=== PATIENT | female | born 1980 | race Hispanic/Latino ===

== ENCOUNTER 2019-02-20 13:49 | Emergency (ER) | payer MEDICAID ==
[~2019-02-20] VITALS: Ht 157.5 cm; Wt 90.9 kg
[2019-02-20 14:55] LABS: URINE BILIRUBIN - DIPSTICK NEGATIVE (NEGATIVE); URINE BLOOD DIPSTICK SMALL (NEGATIVE); URINE COLOR YELLOW; URINE GLUCOSE - DIPSTICK >=1000 mg/dL (NEGATIVE); URINE KETONE TRACE mg/dL (NEGATIVE); URINE PH 5.5 (4.5-8.0); URINE PROTEIN - DIPSTICK TRACE mg/dL (NEG-TRACE); URINE UROBILINOGEN - DIPSTICK 0.2 E.U./dL (0.2)
[2019-02-20 14:57] LABS: IMMATURE GRANULOCYTES 0.5 % (0.0-5.0); MEAN CORPUSCULAR HGB 27.3 pG CALC (26.0-32.0); MEAN CORPUSCULAR HGB CONC 32.9 g/L CALC (32.0-36.0); NEUT# 8.18 thou/uL (2.00-7.15); RED BLOOD COUNT 5.13 mill/uL (4.20-5.60); RED CELL DISTRI WIDTH 13.1 % (11.5-15.5)
[2019-02-20 14:58] LABS: HEMATOCRIT 42.6 % (37.0-47.0)
[2019-02-20 15:02] LABS: URINE LEUK ESTERASE SMALL (NEGATIVE); URINE NITRITE - DIPSTICK POSITIVE (Negative)
[2019-02-20] MEDS ORDERED: METFORMIN HCL500 M1 PO (15:07)
[2019-02-20] MEDS ORDERED: LANTUS SOL100 UNIT/M SC (15:07)
[2019-02-20] MEDS ORDERED: ATORVASTATIN CA10 MG PO (15:08)
[2019-02-20 15:10] LABS: ALKALINE PHOSPHATASE 126 u/l (38-126); ANION GAP 17 (6-22 (CALC)); BILIRUBIN, TOTAL 0.5 mg/dL (0.0-1.4); BUN 11 mg/dL (7-17); BUN/CREATININE RATIO 22 (12-20 (CALC)); CHLORIDE 96 mmol/l (95-108); CREATININE 0.5 mg/dL (0.5-1.0); GFR > 60 ML/MIN (>=60 (CALC)); GFR FOR AFR.AMER. > 60 ML/MIN (>=60 (CALC)); POTASSIUM 4.1 mmol/l (3.5-5.1); SGOT/AST 17 u/l (14-36); SODIUM 136 mmol/l (137-146); TOTAL PROTEIN 7.6 g/dL (6.3-8.2)
[2019-02-20 15:11] LABS: CARBON DIOXIDE 27 mmol/l (22-30)
[2019-02-20 15:17] LABS: URINE RBC 25-50 RBC/hpf (0-5); URINE SQUAMOUS EPITHELIAL CELL FEW EPI/hpf (0-FEW); URINE WBC 20-50 WBC/hpf (0-5)
[2019-02-20 15:18] LABS: URINE BACTERIA MODERATE hpf
[2019-02-20] MEDS ORDERED: KEFLEX500 M1 PO (16:36)
[2019-02-20 16:50] VITALS: BP 107/76
== END 2019-02-20 17:25 | disposition home or self-care (01) ==
LOC: ED 13:49
DX: N39.0 Urinary tract infection, site not specified (principal); E11.9 Type 2 diabetes mellitus without complications; G40.909 Epilepsy, unspecified, not intractable, without status epilepticus; B96.20 Unspecified Escherichia coli [E. coli] as the cause of diseases classified elsewhere; Z79.4 Long term (current) use of insulin

== ENCOUNTER 2022-01-12 11:28 | Emergency (ER) | payer MEDICAID ==
[~2022-01-12] VITALS: Ht 157.5 cm; Wt 88.2 kg
[2022-01-12] VITALS (10 sets, daily range): BP systolic 93–122; BP diastolic 60–79
[~2022-01-12 11:28] MED LIST: ATORVASTATIN CA10 MG PO; KEFLEX500 M1 PO; LANTUS SOL100 UNIT/M SC; METFORMIN HCL500 M1 PO
[2022-01-12 13:38] LABS: URINE BILIRUBIN - DIPSTICK NEGATIVE (NEGATIVE); URINE BLOOD DIPSTICK NEGATIVE (NEGATIVE); URINE COLOR YELLOW; URINE GLUCOSE - DIPSTICK >=1000 mg/dL (NEGATIVE); URINE KETONE 15 mg/dL (NEGATIVE); URINE LEUK ESTERASE NEGATIVE (NEGATIVE); URINE PH 5.5 (4.5-8.0); URINE PROTEIN - DIPSTICK TRACE mg/dL (NEG-TRACE); URINE SPECIFIC GRAVITY 1.025; URINE UROBILINOGEN - DIPSTICK 0.2 E.U./dL (0.2)
[2022-01-12 13:41] LABS: URINE NITRITE - DIPSTICK NEGATIVE (Negative)
[2022-01-12 13:58] LABS: HEMATOCRIT 41.7 % (37.0-47.0); HEMOGLOBIN 13.8 g/dl (12.0-16.0); IMMATURE GRANULOCYTES 0.1 % (0.0-5.0); MEAN CELL VOLUME 83.6 fL CALC (80.0-100.0); MEAN CORPUSCULAR HGB 27.7 pG CALC (26.0-32.0); MEAN CORPUSCULAR HGB CONC 33.1 g/dL CAL (32.0-36.0); NEUT# 4.56 thou/uL (2.00-7.15); RED BLOOD COUNT 4.99 mill/uL (4.20-5.60); RED CELL DISTRI WIDTH 13.2 % (11.5-15.5)
[2022-01-12 14:02] LABS: ALBUMIN 3.9 g/dL (3.2-5.0); ALKALINE PHOSPHATASE 132 u/l (38-126); ANION GAP 11 (6-22 (CALC)); BILIRUBIN, TOTAL 0.4 mg/dL (0.0-1.4); BUN 15 mg/dL (7-17); BUN/CREATININE RATIO 37 (12-20 (CALC)); CARBON DIOXIDE 28 mmol/l (22-30); CHLORIDE 101 mmol/l (95-108); CREATININE 0.4 mg/dL (0.5-1.0); GFR FOR AFR.AMER. > 60 ML/MIN (>=60 (CALC)); GFR OTHER RACES > 60 ML/MIN (>=60 (CALC)); LIPASE 134 u/l (23-300); POTASSIUM 3.9 mmol/l (3.5-5.1); SGOT/AST 23 u/l (14-36); SODIUM 136 mmol/l (137-146); TOTAL PROTEIN 7.5 g/dL (6.3-8.2)
[2022-01-12] MEDS ORDERED: NAPROXEN500 MG PO (16:58)
[2022-01-12] MEDS ORDERED: METHOCARBAMOL500 MG PO (16:58)
== END 2022-01-12 17:17 | disposition home or self-care (01) ==
LOC: ED 11:28
PROVIDERS: Nurse Practitioner
DX: R10.32 Left lower quadrant pain (principal); M79.10 Myalgia, unspecified site
CPT/HCPCS: Q9967

== ENCOUNTER 2022-06-24 17:52 | Emergency (ER) | payer MEDICAID ==
[~2022-06-24] VITALS: Ht 157.5 cm; Wt 92.5 kg
[~2022-06-24 17:52] MED LIST changes: +METHOCARBAMOL500 MG PO; +NAPROXEN500 MG PO
[2022-06-24 18:01] VITALS: BP 115/70
[2022-06-24] MEDS ORDERED: GLIPIZIDE ER5 MG PO (18:13)
[2022-06-24 18:31] VITALS: BP 102/68
[2022-06-24] MEDS ORDERED: TAM75CAP PO (18:44)
[2022-06-24 19:00] VITALS: BP 100/70
[2022-06-24 19:05] VITALS: BP 100/70
== END 2022-06-24 19:14 | disposition home or self-care (01) ==
LOC: ED 17:52
DX: J10.1 Influenza due to other identified influenza virus with other respiratory manifestations (principal); E11.9 Type 2 diabetes mellitus without complications; G40.909 Epilepsy, unspecified, not intractable, without status epilepticus; Z79.84 Long term (current) use of oral hypoglycemic drugs; Z20.822 Contact with and (suspected) exposure to COVID-19

== ENCOUNTER 2022-11-22 17:25 | Emergency (ER) | payer MEDICAID ==
[~2022-11-22] VITALS: Ht 157.5 cm; Wt 93.0 kg
[~2022-11-22 17:25] MED LIST changes: +GLIPIZIDE ER5 MG PO; +TAM75CAP PO
[2022-11-22 18:09] VITALS: BP 117/73
[2022-11-22 18:16] VITALS: BP 103/61
[2022-11-22 18:28] VITALS: BP 103/61
[2022-11-22 19:12] LABS: BASO% 0.6 % (0-3); EOS% 2.4 % (0-8); HEMATOCRIT 36.7 % (37.0-47.0); IMMATURE GRANULOCYTES 0.1 % (0.0-5.0); LYMPH% 35.1 % (15-41); MEAN CELL VOLUME 78.3 fL CALC (80.0-100.0); MEAN CORPUSCULAR HGB 24.3 pG CALC (26.0-32.0); MEAN CORPUSCULAR HGB CONC 31.1 g/dL CAL (32.0-36.0); MONO% 6.2 % (2-13); NEUT# 4.83 thou/uL (2.00-7.15); NEUT% 55.6 % (42-76); RED BLOOD COUNT 4.69 mill/uL (4.20-5.60); RED CELL DISTRI WIDTH 15.1 % (11.5-15.5)
[2022-11-22 19:13] LABS: HEMOGLOBIN 11.4 g/dl (12.0-16.0)
[2022-11-22 19:14] LABS: URINE BILIRUBIN - DIPSTICK NEGATIVE (NEGATIVE); URINE BLOOD DIPSTICK LARGE (NEGATIVE); URINE COLOR YELLOW; URINE GLUCOSE - DIPSTICK >=1000 mg/dL (NEGATIVE); URINE KETONE NEGATIVE (NEGATIVE); URINE LEUK ESTERASE NEGATIVE (NEGATIVE); URINE NITRITE - DIPSTICK NEGATIVE (Negative); URINE PROTEIN - DIPSTICK 100 mg/dL (NEG-TRACE); URINE SPECIFIC GRAVITY >=1.030; URINE UROBILINOGEN - DIPSTICK 0.2 E.U./dL (0.2)
[2022-11-22 19:20] LABS: URINE RBC 25-50 RBC/hpf (0-5); URINE SQUAMOUS EPITHELIAL CELL FEW EPI/hpf (0-FEW)
[2022-11-22 19:26] LABS: ALBUMIN 3.7 g/dL (3.2-5.0); ALKALINE PHOSPHATASE 104 u/l (38-126); ANION GAP 11 (6-22 (CALC)); BILIRUBIN, TOTAL 0.3 mg/dL (0.02-1.3); BUN 18 mg/dL (7-17); BUN/CREATININE RATIO 34 (12-20 (CALC)); CARBON DIOXIDE 28 mmol/l (22-30); CHLORIDE 102 mmol/l (95-108); CREATININE 0.5 mg/dL (0.5-1.0); GFR FOR AFR.AMER. > 60 ML/MIN (>=60 (CALC)); GFR OTHER RACES > 60 ML/MIN (>=60 (CALC)); SGOT/AST 25 u/l (14-36); SODIUM 137 mmol/l (137-146); TOTAL PROTEIN 7.1 g/dL (6.3-8.2)
[2022-11-22] MEDS ORDERED: NAPROXEN500 MG PO (19:55)
== END 2022-11-22 21:02 | disposition home or self-care (01) ==
LOC: ED 17:25
PROVIDERS: Nurse Practitioner Family
DX: R10.32 Left lower quadrant pain (principal); E11.65 Type 2 diabetes mellitus with hyperglycemia; G40.909 Epilepsy, unspecified, not intractable, without status epilepticus; Z79.84 Long term (current) use of oral hypoglycemic drugs